=== PATIENT | female | born 1995 | race Caucasian/White ===

== ENCOUNTER 2020-09-22 16:50 | Emergency (ER) | payer OTHER | END 2020-09-22 17:58 | disposition home or self-care (01) | LOC: ER1 16:50 | DX: O9A.212 Injury, poisoning and certain other consequences of external causes complicating pregnancy, second trimester (principal); S30.1XXA Contusion of abdominal wall, initial encounter; Z3A.18 18 weeks gestation of pregnancy; W22.8XXA Striking against or struck by other objects, initial encounter | CPT/HCPCS: 81001; 84703; 87086; 99284 ==